=== PATIENT | female | born 1960 | race Caucasian/White ===

== ENCOUNTER 2021-04-13 16:15 | Inpatient (IN) | payer SELFPAY ==
[2021-04-13] MEDS ORDERED: Aspirin Chewable 81 MG TAB ONE (16:49)
[2021-04-13 17:44] LABS: #Eosinphils 0.1 thou/uL (0.0-0.7); #Lymphocytes 1.2 thou/uL (1.20-3.40); #Monocytes 0.3 thou/uL (0.11-0.59); #Neutrophils 4.3 thou/uL (1.40-6.50); %Basophils 0.2 % (0.0-1.0); %Eosinophils 1.5 % (0.0-10.0); %Lymphocytes 20.7 % (21.0-51.0); %Monocytes 5.6 % (0.0-10.0); Hemoglobin 15.9 g/dL (12.0-16.0); Mean Corpuscular HGB CONC 33.4 g/dL (32.0-36.0); Mean Corpuscular Hemoglobin 35.7 pg (27.0-31.0); Mean Platelet Volume 7.7 fL (7.4-10.4); Platelet Count 211 thou/uL (130-400); RBC Distribution Width 14.8 % (11.5-14.5); Red Blood Cell (RBC) Count 4.46 mill/uL (4.20-5.40); White Blood Cell (WBC) Count 5.9 thou/uL (4.8-10.8)
[2021-04-13 17:57] LABS: ALT (SGPT) 36 U/L (8-55); AST (SGOT) 33 U/L (5-34); Albumin 3.9 g/dL (3.4-4.8); Alkaline Phosphatase 83 U/L (40-110); Anion Gap 14 mmol/L (10-20); BUN (Urea Nitrogen) 6 mg/dL (9.8-20.1); Bilirubin, Total 0.3 mg/dL (0.2-1.2); Calc. Creatinine Clearance 0 mL/min (70-130); Calcium 8.9 mg/dL (7.8-10.44); Carbon Dioxide 30 mmol/L (23-31); Chloride 101 mmol/L (98-107); Glucose 97 mg/dL (80-115); Magnesium 1.8 mg/dL (1.6-2.6); Potassium 4.3 mmol/L (3.5-5.1); Protein, Total 6.9 g/dL (5.8-8.1); Sodium 141 mmol/L (136-145)
[2021-04-13 18:13] LABS: MDiff Complete? YES; Macrocytosis SLIGHT = 6-15 cells (100X) (0-5/hpf); Platelet Morphology Comment Appears Adequate
[2021-04-13 18:38] LABS: SARS-CoV-2 NAA Rapid Test Not Detected (NotDetected)
[2021-04-13 23:37] LABS: Troponin I Less than 0.010 ng/mL (< 0.028)
[2021-04-14] MEDS ORDERED: Lorazepam 1 MG TAB PO PRN
[2021-04-14] MEDS ORDERED: Nitroglycerin 0.4 MG TAB (25 Tab Bottle) SL PRN (00:25)
[2021-04-14] MEDS ORDERED: Acetaminophen 325 MG TAB PO PRN (00:25)
[2021-04-14] MEDS ORDERED: Ondansetron PF 4 MG/2 ML Vial IVP PRN (00:25)
[2021-04-14] MEDS ORDERED: Ondansetron ODT 4 MG TAB PO PRN (01:00)
[2021-04-14] MEDS ORDERED: Electrolyte Replacement Protocol 1 EACH FS PRN (01:00)
[2021-04-14] MEDS ORDERED: Lorazepam 2 MG/ML VIAL IM PRN (01:00)
[2021-04-14] MEDS ORDERED: Lorazepam 1 MG TAB ONE ×2 (01:19→07:59)
[2021-04-14] MEDS: Lorazepam 1 MG TAB PO SCH ×4 (01:36→18:31)
[2021-04-14] MEDS: Thiamine HCl 200 MG/2 ML VIAL SLOW IVP SCH (01:41)
[2021-04-14 01:48] LABS: Troponin I Less than 0.010 ng/mL (< 0.028)
[2021-04-14 05:54] LABS: #Eosinphils 0.1 thou/uL (0.0-0.7); #Lymphocytes 1.2 thou/uL (1.20-3.40); #Monocytes 0.4 thou/uL (0.11-0.59); #Neutrophils 3.8 thou/uL (1.40-6.50); %Basophils 0.3 % (0.0-1.0); %Eosinophils 1.1 % (0.0-10.0); %Lymphocytes 22.3 % (21.0-51.0); %Neutrophils 69.3 % (42.0-75.0); Hemoglobin 14.3 g/dL (12.0-16.0); Mean Corpuscular HGB CONC 33.4 g/dL (32.0-36.0); Mean Corpuscular Hemoglobin 35.7 pg (27.0-31.0); Mean Platelet Volume 7.4 fL (7.4-10.4); Platelet Count 211 thou/uL (130-400); RBC Distribution Width 14.5 % (11.5-14.5); Red Blood Cell (RBC) Count 4.01 mill/uL (4.20-5.40); White Blood Cell (WBC) Count 5.4 thou/uL (4.8-10.8)
[2021-04-14 06:22] LABS: Anion Gap 11 mmol/L (10-20); BUN (Urea Nitrogen) 8 mg/dL (9.8-20.1); Calc. Creatinine Clearance 0 mL/min (70-130); Calcium 9.2 mg/dL (7.8-10.44); Carbon Dioxide 33 mmol/L (23-31); Cardiac Risk 4.7 (Less than 4.5); Chloride 102 mmol/L (98-107); Cholesterol 236 mg/dl (< 200 Desired); Glucose 103 mg/dL (80-115); HDL Cholesterol 50 mg/dL (>60 Neg Risk); LDL Cholesterol, Calculated 157 mg/dL; Potassium 4.2 mmol/L (3.5-5.1); Sodium 142 mmol/L (136-145); Triglycerides 143 mg/dL (Less than 150)
[2021-04-14 06:26] LABS: Troponin I 0.018 ng/mL (< 0.028)
[2021-04-14] MEDS ORDERED: Magnesium 2 GM/50 ML 2 GM in Premix Bag 1 BAG IVPB SCH (07:00)
[2021-04-14] MEDS ORDERED: Folic Acid 1 MG TAB ONE ×2 (07:59→09:53)
[2021-04-14] MEDS ORDERED: Magnesium 2 GM/50 ML BAG (IN WATER) ONE (07:59)
[2021-04-14] MEDS ORDERED: methylPREDNISolone Sod Succ 40 MG VIAL ONE (09:52)
[2021-04-14] MEDS: Multivit, Therapeutic 1 TAB PO SCH (10:04)
[2021-04-14] MEDS: methylPREDNISolone Sod Succ 40 MG VIAL IVP SCH ×2 (10:04→18:30)
[2021-04-14] MEDS: Folic Acid 1 MG TAB PO SCH (10:04)
[2021-04-14 13:09] VITALS: BMI 32.8
[2021-04-14] MEDS ORDERED: Prevnar 13-Val Conj/PF 0.5 ML SYRINGE IM ONE (14:15)
[2021-04-14] MEDS ORDERED: FLU VACC QS2021-22(6MOS UP)/PF 60 MCG/0.5 ML SYRINGE IM ONE (14:15)
[2021-04-14] MEDS ORDERED: hydrALAZINE 20 MG/ML VIAL SLOW IVP PRN (19:03)
[2021-04-15] MEDS ORDERED: Lorazepam 1 MG TAB PO PRN (01:00)
[2021-04-15] MEDS: Lorazepam 1 MG TAB PO SCH ×5 (02:24→20:30)
[2021-04-15] MEDS: methylPREDNISolone Sod Succ 40 MG VIAL IVP SCH ×3 (02:28→17:44)
[2021-04-15] MEDS: Thiamine HCl 200 MG/2 ML VIAL SLOW IVP SCH (02:50)
[2021-04-15 05:32] LABS: #Lymphocytes 0.4 thou/uL (1.20-3.40); #Monocytes 0.1 thou/uL (0.11-0.59); #Neutrophils 4.4 thou/uL (1.40-6.50); %Eosinophils 0.1 % (0.0-10.0); %Lymphocytes 7.5 % (21.0-51.0); %Monocytes 1.3 % (0.0-10.0); %Neutrophils 91.1 % (42.0-75.0); Hemoglobin 15.7 g/dL (12.0-16.0); Mean Corpuscular HGB CONC 33.5 g/dL (32.0-36.0); Mean Corpuscular Hemoglobin 35.2 pg (27.0-31.0); Mean Platelet Volume 7.4 fL (7.4-10.4); Platelet Count 217 thou/uL (130-400); RBC Distribution Width 13.9 % (11.5-14.5); Red Blood Cell (RBC) Count 4.47 mill/uL (4.20-5.40); White Blood Cell (WBC) Count 4.9 thou/uL (4.8-10.8)
[2021-04-15 05:48] LABS: Anion Gap 14 mmol/L (10-20); BUN (Urea Nitrogen) 5 mg/dL (9.8-20.1); Calc. Creatinine Clearance 127 mL/min (70-130); Calcium 9.3 mg/dL (7.8-10.44); Carbon Dioxide 30 mmol/L (23-31); Chloride 99 mmol/L (98-107); Glucose 159 mg/dL (80-115); Potassium 3.9 mmol/L (3.5-5.1); Sodium 139 mmol/L (136-145)
[2021-04-15] MEDS: Levothyroxine Sodium 50 MCG TAB PO SCH (06:28)
[2021-04-15 08:17] LABS: Free T4 (Free Thyroxine) 0.89 ng/dL (0.70-1.48)
[2021-04-15] MEDS: Carvedilol 6.25 MG TAB PO SCH ×2 (09:29→17:44)
[2021-04-15] MEDS: Folic Acid 1 MG TAB PO SCH (09:29)
[2021-04-15] MEDS: Lisinopril 20 MG TAB PO SCH (09:29)
[2021-04-15] MEDS: Multivit, Therapeutic 1 TAB PO SCH (09:30)
[2021-04-15] MEDS: Amlodipine 10 MG TAB PO SCH (09:30)
[2021-04-16] MEDS ORDERED: Lorazepam 1 MG TAB PO PRN (01:00)
[2021-04-16] MEDS: Lorazepam 1 MG TAB PO SCH (01:08)
[2021-04-16] MEDS: Thiamine HCl 200 MG/2 ML VIAL SLOW IVP SCH (01:11)
[2021-04-16] MEDS: methylPREDNISolone Sod Succ 40 MG VIAL IVP SCH ×2 (01:11→08:21)
[2021-04-16] MEDS: Lorazepam 0.5 MG TAB PO SCH ×3 (01:22→12:54)
[2021-04-16 05:08] LABS: #Basophils 0.1 thou/uL (0.0-0.2); #Lymphocytes 0.2 thou/uL (1.20-3.40); #Monocytes 0.1 thou/uL (0.11-0.59); #Neutrophils 8.7 thou/uL (1.40-6.50); %Eosinophils 0.1 % (0.0-10.0); %Lymphocytes 2.5 % (21.0-51.0); %Neutrophils 95.4 % (42.0-75.0); Hemoglobin 16.1 g/dL (12.0-16.0); Mean Corpuscular Hemoglobin 35.2 pg (27.0-31.0); Mean Platelet Volume 7.7 fL (7.4-10.4); Platelet Count 239 thou/uL (130-400); RBC Distribution Width 14.1 % (11.5-14.5); Red Blood Cell (RBC) Count 4.58 mill/uL (4.20-5.40); White Blood Cell (WBC) Count 9.1 thou/uL (4.8-10.8)
[2021-04-16] MEDS: Levothyroxine Sodium 50 MCG TAB PO SCH (05:25)
[2021-04-16 05:33] LABS: Anion Gap 14 mmol/L (10-20); BUN (Urea Nitrogen) 12 mg/dL (9.8-20.1); Calc. Creatinine Clearance 105 mL/min (70-130); Calcium 9.4 mg/dL (7.8-10.44); Carbon Dioxide 30 mmol/L (23-31); Chloride 98 mmol/L (98-107); Glucose 154 mg/dL (80-115); Potassium 3.8 mmol/L (3.5-5.1); Sodium 138 mmol/L (136-145)
[2021-04-16] MEDS: Lisinopril 20 MG TAB PO SCH (08:20)
[2021-04-16] MEDS: Amlodipine 10 MG TAB PO SCH (08:20)
[2021-04-16] MEDS: Folic Acid 1 MG TAB PO SCH (08:20)
[2021-04-16] MEDS: Carvedilol 6.25 MG TAB PO SCH (08:20)
[2021-04-16] MEDS: Multivit, Therapeutic 1 TAB PO SCH (08:21)
[2021-04-16 12:14] VITALS: BP 169/81; TEMP 98.1
[2021-04-17] MEDS ORDERED: Levothyroxine Sodium 88 MCG TAB PO SCH (06:00)
[2021-04-17] MEDS ORDERED: Lorazepam 0.5 MG TAB PO PRN (06:00)
[2021-04-17] MEDS ORDERED: Thiamine 100 MG TAB PO SCH (09:00)
== END 2021-04-16 14:12 | disposition home or self-care (01) | DRG 189 ==
LOC: ERS 16:15 → ERHOLD 19:14 → 2SW 04-14 12:45 → OBSVTOIN 04-14 16:14
PROVIDERS: ADMIT Hospitalist; ATTEND Internal Medicine
PROC: 06HY33Z Insertion of Infusion Device into Lower Vein, Percutaneous Approach (ICD-10-PCS; principal; 2021-04-14)
DX: J96.21 Acute and chronic respiratory failure with hypoxia (principal); Z20.822 Contact with and (suspected) exposure to COVID-19; I10 Essential (primary) hypertension; E03.9 Hypothyroidism, unspecified; F17.210 Nicotine dependence, cigarettes, uncomplicated; F10.10 Alcohol abuse, uncomplicated; F41.9 Anxiety disorder, unspecified; F44.1 Dissociative fugue; R07.89 Other chest pain; Z71.6 Tobacco abuse counseling; Z99.81 Dependence on supplemental oxygen; Z28.21 Immunization not carried out because of patient refusal; Z85.41 Personal history of malignant neoplasm of cervix uteri; Z90.710 Acquired absence of both cervix and uterus; Z79.899 Other long term (current) drug therapy; Z79.890 Hormone replacement therapy
CPT/HCPCS: 0240U; 36415; 71045; 71275; 80048; 80053; 80061; 83735; 83880; 84439; 84443; 84481; 84484; 85025; 85379; 93306; 94640; 94760; J2920; J3411; J3475; J7620

== ENCOUNTER 2021-09-18 11:39 | Inpatient (IN) | payer OTHER, SELFPAY ==
[2021-09-18 13:16] LABS: #Lymphocytes 1.4 thou/uL (1.20-3.40); #Monocytes 0.3 thou/uL (0.11-0.59); %Basophils 0.7 % (0.0-1.0); %Eosinophils 0.5 % (0.0-10.0); %Lymphocytes 23.6 % (21.0-51.0); %Monocytes 5.5 % (0.0-10.0); %Neutrophils 69.6 % (42.0-75.0); Hemoglobin 15.8 g/dL (12.0-16.0); Mean Corpuscular HGB CONC 32.9 g/dL (32.0-36.0); Mean Corpuscular Hemoglobin 33.9 pg (27.0-31.0); Platelet Count 218 thou/uL (130-400); RBC Distribution Width 14.9 % (11.5-14.5); Red Blood Cell (RBC) Count 4.66 mill/uL (4.20-5.40); White Blood Cell (WBC) Count 5.8 thou/uL (4.8-10.8)
[2021-09-18] MEDS ORDERED: Iopamidol-370 76% 500 ML 1 ML ONE (13:35)
[2021-09-18 13:37] LABS: Bilirubin Negative (Negative); Blood, Urine Negative (Negative); Clarity Clear (Clear); Glucose, Urine (Dipstick) Normal (Negative); Ketone, Urine Negative (Negative); Leukocyte Negative Leu/uL (Negative); Nitrite Negative (Negative); Protein, Urine (Dipstick) Negative (Neg-Trace); Specific Gravity, Urine 1.004 (1.002-1.036); Urobilinogen Normal mg/dL (Less than 2); pH, Urine 5.5 (5.0-9.0)
[2021-09-18 13:40] LABS: ALT (SGPT) 13 U/L (8-55); AST (SGOT) 16 U/L (5-34); Albumin 3.9 g/dL (3.4-4.8); Alkaline Phosphatase 77 U/L (40-110); Anion Gap 13 mmol/L (10-20); BUN (Urea Nitrogen) 5 mg/dL (9.8-20.1); Bilirubin, Total 0.3 mg/dL (0.2-1.2); Calc. Creatinine Clearance 0 mL/min (70-130); Calcium 8.4 mg/dL (7.8-10.44); Carbon Dioxide 28 mmol/L (23-31); Chloride 101 mmol/L (98-107); Globulin 2.3 g/dL (2.4-3.5); Glucose 94 mg/dL (80-115); Potassium 3.9 mmol/L (3.5-5.1); Protein, Total 6.2 g/dL (5.8-8.1); Sodium 138 mmol/L (136-145)
[2021-09-18] MEDS ORDERED: methylPREDNISolone Sod Succ/PF 125 MG/2 ML VIAL ONE (14:53)
[2021-09-18] MEDS ORDERED: Calcium Carbonate 500 MG ChewTAB PO PRN (15:12)
[2021-09-18] MEDS ORDERED: Senokot S 8.6-50 MG TAB PO PRN (15:12)
[2021-09-18] MEDS ORDERED: Ondansetron PF 4 MG/2 ML Vial IVP PRN (15:12)
[2021-09-18] MEDS ORDERED: Acetaminophen 325 MG TAB PO PRN (15:12)
[2021-09-18] MEDS ORDERED: Ondansetron ODT 4 MG TAB PO PRN (15:12)
[2021-09-18] MEDS ORDERED: Electrolyte Replacement Protocol 1 EACH FS SCH (15:15)
[2021-09-18] MEDS ORDERED: hydrALAZINE 20 MG/ML VIAL SLOW IVP PRN (15:19)
[2021-09-18] MEDS ORDERED: Electrolyte Replacement Protocol FS PRN (15:30)
[2021-09-18] MEDS: cefTRIAXone\\ROCEPHIN 1 GM in Sodium Chloride 0.9% 100 ML IVPB SCH (18:26)
[2021-09-18 18:40] VITALS: BMI 31.7
[2021-09-18] MEDS ORDERED: diphenhydrAMINE 25 MG CAP PO SCH (20:15)
[2021-09-18] MEDS: Doxycycline 100 MG CAP PO SCH (20:36)
[2021-09-18] MEDS: methylPREDNISolone Sod Succ 40 MG VIAL IVP SCH (20:36)
[2021-09-18] MEDS: Nicotine 14 MG PATCH TOP SCH (20:36)
[2021-09-19 04:38] LABS: #Lymphocytes 0.2 thou/uL (1.20-3.40); #Neutrophils 3.7 thou/uL (1.40-6.50); %Eosinophils 0.1 % (0.0-10.0); %Lymphocytes 5.9 % (21.0-51.0); %Monocytes 0.8 % (0.0-10.0); %Neutrophils 93.3 % (42.0-75.0); Hemoglobin 15.7 g/dL (12.0-16.0); Mean Corpuscular HGB CONC 33.3 g/dL (32.0-36.0); Mean Corpuscular Hemoglobin 34.2 pg (27.0-31.0); Mean Platelet Volume 7.5 fL (7.4-10.4); Platelet Count 216 thou/uL (130-400); RBC Distribution Width 15.2 % (11.5-14.5); Red Blood Cell (RBC) Count 4.61 mill/uL (4.20-5.40)
[2021-09-19 04:57] LABS: Anion Gap 12 mmol/L (10-20); BUN (Urea Nitrogen) 5 mg/dL (9.8-20.1); Calc. Creatinine Clearance 114 mL/min (70-130); Calcium 8.9 mg/dL (7.8-10.44); Carbon Dioxide 30 mmol/L (23-31); Chloride 99 mmol/L (98-107); Glucose 236 mg/dL (80-115); Sodium 137 mmol/L (136-145)
[2021-09-19] MEDS ORDERED: Magnesium 2 GM/50 ML(in water) 2 GM in Premix Bag 1 BAG IVPB SCH (05:15)
[2021-09-19] MEDS: methylPREDNISolone Sod Succ 40 MG VIAL IVP SCH ×3 (05:33→22:07)
[2021-09-19] MEDS: Levothyroxine Sodium 25 MCG TAB PO SCH (05:33)
[2021-09-19] MEDS ORDERED: ALPRAZolam 0.25 MG TAB PO SCH (09:45)
[2021-09-19] MEDS: Lisinopril 20 MG TAB PO SCH (09:53)
[2021-09-19] MEDS: Cyanocobalamin (Vitamin B-12) 1,000 MCG TAB PO SCH (09:54)
[2021-09-19] MEDS: Doxycycline 100 MG CAP PO SCH ×2 (09:54→22:06)
[2021-09-19] MEDS: Enoxaparin Sodium 40 MG/0.4 ML SYRINGE SC SCH (09:54)
[2021-09-19] MEDS: Amlodipine 10 MG TAB PO SCH (09:54)
[2021-09-19] MEDS: Atenolol 25 MG TAB PO SCH (09:54)
[2021-09-19] MEDS ORDERED: Furosemide 40 MG TAB PO SCH (10:00)
[2021-09-19 16:11] LABS: SARS-CoV-2 PCR by NAA Not Detected (NotDetected)
[2021-09-19] MEDS: cefTRIAXone\\ROCEPHIN 1 GM in Sodium Chloride 0.9% 100 ML IVPB SCH (17:57)
[2021-09-19] MEDS: ALPRAZolam 0.25 MG TAB PO PRN (22:06)
[2021-09-19] MEDS: Nicotine 14 MG PATCH TOP SCH (22:07)
[2021-09-20 04:58] LABS: Magnesium 2.1 mg/dL (1.6-2.6)
[2021-09-20] MEDS: Levothyroxine Sodium 25 MCG TAB PO SCH (05:55)
[2021-09-20] MEDS: methylPREDNISolone Sod Succ 40 MG VIAL IVP SCH (05:55)
[2021-09-20] MEDS: Lisinopril 20 MG TAB PO SCH (08:39)
[2021-09-20] MEDS: Enoxaparin Sodium 40 MG/0.4 ML SYRINGE SC SCH (08:39)
[2021-09-20] MEDS: Doxycycline 100 MG CAP PO SCH ×2 (08:39→22:03)
[2021-09-20] MEDS: Cyanocobalamin (Vitamin B-12) 1,000 MCG TAB PO SCH (08:39)
[2021-09-20] MEDS: Amlodipine 10 MG TAB PO SCH (08:39)
[2021-09-20] MEDS: Atenolol 25 MG TAB PO SCH ×2 (08:40→22:03)
[2021-09-20] MEDS: Furosemide 40 MG TAB PO SCH (08:40)
[2021-09-20] MEDS ORDERED: Atenolol 25 MG TAB PO SCH (09:11)
[2021-09-20] MEDS: guaiFENesin ER 600 MG TAB PO SCH (22:03)
[2021-09-20] MEDS: Nicotine 14 MG PATCH TOP SCH (22:03)
[2021-09-20] MEDS: ALPRAZolam 0.25 MG TAB PO PRN (22:10)
[2021-09-21] MEDS: Levothyroxine Sodium 25 MCG TAB PO SCH (05:12)
[2021-09-21] MEDS ORDERED: predniSONE 20 MG TAB PO SCH (08:00)
[2021-09-21 08:11] VITALS: BP 155/72; TEMP 98.1
[2021-09-21] MEDS: Furosemide 40 MG TAB PO SCH (09:01)
[2021-09-21] MEDS: Cyanocobalamin (Vitamin B-12) 1,000 MCG TAB PO SCH (09:01)
[2021-09-21] MEDS: Atenolol 25 MG TAB PO SCH (09:01)
[2021-09-21] MEDS: Amlodipine 10 MG TAB PO SCH (09:01)
[2021-09-21] MEDS: Doxycycline 100 MG CAP PO SCH (09:02)
[2021-09-21] MEDS: Lisinopril 20 MG TAB PO SCH (09:02)
[2021-09-21] MEDS: guaiFENesin ER 600 MG TAB PO SCH (09:02)
[2021-09-21] MEDS: Enoxaparin Sodium 40 MG/0.4 ML SYRINGE SC SCH (09:04)
== END 2021-09-21 10:40 | disposition home or self-care (01) | DRG 291 ==
LOC: ERS 11:39 → 2NO 14:45
PROVIDERS: ADMIT Family Medicine; ATTEND Family Medicine
DX: I13.0 Hypertensive heart and chronic kidney disease with heart failure and stage 1 through stage 4 chronic kidney disease, or unspecified chronic kidney disease (principal); J96.21 Acute and chronic respiratory failure with hypoxia; I50.33 Acute on chronic diastolic (congestive) heart failure; J44.1 Chronic obstructive pulmonary disease with (acute) exacerbation; Z20.822 Contact with and (suspected) exposure to COVID-19; F17.210 Nicotine dependence, cigarettes, uncomplicated; E03.9 Hypothyroidism, unspecified; N18.2 Chronic kidney disease, stage 2 (mild); F41.9 Anxiety disorder, unspecified; I08.1 Rheumatic disorders of both mitral and tricuspid valves; Z79.899 Other long term (current) drug therapy; Z99.81 Dependence on supplemental oxygen; Z79.890 Hormone replacement therapy; Z79.52 Long term (current) use of systemic steroids; Z90.710 Acquired absence of both cervix and uterus; Z85.41 Personal history of malignant neoplasm of cervix uteri; Z80.3 Family history of malignant neoplasm of breast; Z82.5 Family history of asthma and other chronic lower respiratory diseases; Z71.6 Tobacco abuse counseling; Z91.14 Patient's other noncompliance with medication regimen; Z71.41 Alcohol abuse counseling and surveillance of alcoholic
CPT/HCPCS: 36415; 71045; 71275; 80048; 80053; 81003; 83605; 83735; 83880; 84484; 85025; 93005; 94640; 94760; 96374; J0360; J0696; J2920; J2930; J3475; J3490; J7512; J7620; Q9967; U0003; U0005

== ENCOUNTER 2021-10-23 18:36 | Emergency (ER) | payer OTHER, SELFPAY ==
[2021-10-23 19:10] LABS: #Basophils 0.1 thou/uL (0.0-0.2); #Lymphocytes 1.4 thou/uL (1.20-3.40); #Monocytes 0.4 thou/uL (0.11-0.59); #Neutrophils 2.7 thou/uL (1.40-6.50); %Basophils 1.4 % (0.0-1.0); %Eosinophils 0.6 % (0.0-10.0); %Lymphocytes 30.5 % (21.0-51.0); %Monocytes 8.7 % (0.0-10.0); %Neutrophils 58.9 % (42.0-75.0); Hemoglobin 15.2 g/dL (12.0-16.0); Mean Corpuscular Hemoglobin 34.8 pg (27.0-31.0); Platelet Count 273 thou/uL (130-400); RBC Distribution Width 14.7 % (11.5-14.5); Red Blood Cell (RBC) Count 4.37 mill/uL (4.20-5.40); White Blood Cell (WBC) Count 4.6 thou/uL (4.8-10.8)
[2021-10-23 19:22] LABS: MDiff Complete? YES; Macrocytosis SLIGHT = 6-15 cells (100X) (0-5/hpf); Platelet Morphology Comment Appears Adequate; Polychromasia SLIGHT = 2-3 cells (100X) (0-2/hpf)
[2021-10-23 19:29] LABS: ALT (SGPT) 16 U/L (8-55); AST (SGOT) 18 U/L (5-34); Albumin 3.6 g/dL (3.4-4.8); Alkaline Phosphatase 78 U/L (40-110); Anion Gap 15 mmol/L (10-20); BUN (Urea Nitrogen) 4 mg/dL (9.8-20.1); Bilirubin, Total 0.5 mg/dL (0.2-1.2); Calc. Creatinine Clearance 0 mL/min (70-130); Calcium 8.5 mg/dL (7.8-10.44); Carbon Dioxide 29 mmol/L (23-31); Chloride 98 mmol/L (98-107); Globulin 2.9 g/dL (2.4-3.5); Glucose 122 mg/dL (80-115); Potassium 3.7 mmol/L (3.5-5.1); Protein, Total 6.5 g/dL (5.8-8.1); Sodium 138 mmol/L (136-145)
[2021-10-23] MEDS ORDERED: Albuterol Sulfate 2.5 mg/0.5 ml Neb ONE (20:25)
[2021-10-23] MEDS ORDERED: Albuterol Sulfate 1.25 MG/3 ML NEB ONE (20:26)
== END 2021-10-24 01:25 | disposition home or self-care (01) ==
LOC: ERS 18:36
DX: J44.1 Chronic obstructive pulmonary disease with (acute) exacerbation (principal); R00.0 Tachycardia, unspecified; I10 Essential (primary) hypertension; I34.1 Nonrheumatic mitral (valve) prolapse; F17.210 Nicotine dependence, cigarettes, uncomplicated; Z79.899 Other long term (current) drug therapy
CPT/HCPCS: 36415; 71045; 80053; 83880; 84484; 85025; 93005; J7611; J7620

== ENCOUNTER 2022-07-05 15:28 | Emergency (ER) | payer SELFPAY ==
[2022-07-05 16:59] LABS: #Eosinphils 0.1 thou/uL (0.0-0.7); #Lymphocytes 0.8 thou/uL (1.20-3.40); #Monocytes 0.4 thou/uL (0.11-0.59); #Neutrophils 5.5 thou/uL (1.40-6.50); %Basophils 0.6 % (0.0-1.0); %Eosinophils 1.3 % (0.0-10.0); %Lymphocytes 11.4 % (21.0-51.0); %Monocytes 5.2 % (0.0-10.0); %Neutrophils 81.5 % (42.0-75.0); Hemoglobin 14.1 g/dL (12.0-16.0); Mean Corpuscular HGB CONC 34.8 g/dL (32.0-36.0); Mean Platelet Volume 7.1 fL (7.4-10.4); Platelet Count 335 10x3/uL (130-400); RBC Distribution Width 12.7 % (11.5-14.5); Red Blood Cell (RBC) Count 4.02 mill/uL (4.20-5.40); White Blood Cell (WBC) Count 6.8 10x3/uL (4.8-10.8)
[2022-07-05 17:18] LABS: ALT (SGPT) 11 U/L (8-55); AST (SGOT) 12 U/L (5-34); Albumin 3.9 g/dL (3.4-4.8); Alkaline Phosphatase 118 U/L (40-110); Anion Gap 14 mmol/L (10-20); BUN (Urea Nitrogen) 5 mg/dL (9.8-20.1); Bilirubin, Total 0.4 mg/dL (0.2-1.2); Calc. Creatinine Clearance 0 mL/min (70-130); Calcium 9.5 mg/dL (7.8-10.44); Carbon Dioxide 29 mmol/L (23-31); Chloride 88 mmol/L (98-107); Estimated GFR 100; Globulin 3.3 g/dL (2.4-3.5); Glucose 127 mg/dL (80-115); Potassium 4.3 mmol/L (3.5-5.1); Protein, Total 7.2 g/dL (5.8-8.1); Sodium 127 mmol/L (136-145)
[2022-07-05] MEDS ORDERED: Acetaminophen/Codeine 30-300mg Tablet ONE (17:47)
[2022-07-05 19:25] LABS: SARS-CoV-2 NAA Rapid Test Not Detected (NotDetected)
== END 2022-07-05 19:50 | disposition home or self-care (01) ==
LOC: ERS 15:28
DX: B34.9 Viral infection, unspecified (principal); E87.1 Hypo-osmolality and hyponatremia; Z20.822 Contact with and (suspected) exposure to COVID-19; I10 Essential (primary) hypertension; J44.9 Chronic obstructive pulmonary disease, unspecified; F17.210 Nicotine dependence, cigarettes, uncomplicated; Z79.899 Other long term (current) drug therapy
CPT/HCPCS: 36415; 71045; 80053; 84484; 85025; 93005; 94760

== ENCOUNTER 2023-02-28 20:41 | Inpatient (IN) | payer SELFPAY ==
[~2023-02-28 20:41] MED LIST: Iopamidol-370 76% 500 ML MDV (1 ML CHARGE) ONE
[2023-02-28 21:23] LABS: #Eosinphils 0.1 thou/uL (0.0-0.7); #Monocytes 1.3 thou/uL (0.11-0.59); #Neutrophils 13.4 thou/uL (1.40-6.50); %Basophils 0.2 % (0.0-1.0); %Eosinophils 0.3 % (0.0-10.0); %Lymphocytes 10.6 % (21.0-51.0); %Monocytes 7.9 % (0.0-10.0); %Neutrophils 80.3 % (42.0-75.0); Hematocrit 28.5 % (36.0-47.0); Hemoglobin 9.5 g/dL (12.0-16.0); Mean Corpuscular HGB CONC 33.3 g/dL (32.0-36.0); Mean Corpuscular Volume 86.9 fl (78.0-98.0); Mean Platelet Volume 8.9 fL (7.4-10.4); Platelet Count 1009 10x3/uL (130-400); RBC Distribution Width 14.2 % (11.5-14.5); Red Blood Cell (RBC) Count 3.28 mill/uL (4.20-5.40); White Blood Cell (WBC) Count 16.7 10x3/uL (4.8-10.8)
[2023-02-28] MEDS ORDERED: Ondansetron PF 4 MG/2 ML Vial ONE (21:24)
[2023-02-28] MEDS ORDERED: Morphine 4 MG/ML VIAL ONE (21:24)
[2023-02-28 21:43] LABS: PTT 38.7 sec (22.9-36.1); Prothrombin Time 13.5 sec (12.0-14.7)
[2023-02-28 21:44] LABS: ALT (SGPT) 16 U/L (8-55); AST (SGOT) 25 U/L (5-34); Albumin 3.3 g/dL (3.4-4.8); Alkaline Phosphatase 531 U/L (40-110); Anion Gap 17 mmol/L (10-20); BUN (Urea Nitrogen) 7 mg/dL (9.8-20.1); Bilirubin, Total 0.2 mg/dL (0.2-1.2); Calc. Creatinine Clearance 0 mL/min (70-130); Calcium 9.3 mg/dL (7.8-10.44); Carbon Dioxide 28 mmol/L (23-31); Chloride 85 mmol/L (98-107); Estimated GFR 102; Globulin 3.5 g/dL (2.4-3.5); Glucose 107 mg/dL (80-115); Potassium 4.1 mmol/L (3.5-5.1); Protein, Total 6.8 g/dL (5.8-8.1); Sodium 126 mmol/L (136-145)
[2023-02-28 22:12] LABS: Bacteria/HPF None Seen HPF (None Seen); Bilirubin Negative (Negative); Blood, Urine Negative (Negative); CAUTI Indications for Culture Dysuria,urgency,freq; Clarity Clear (Clear); Glucose, Urine (Dipstick) Normal (Negative); Ketone, Urine Negative (Negative); Leukocyte Negative Leu/uL (Negative); Nitrite Negative (Negative); Protein, Urine (Dipstick) Negative (Neg-Trace); RBC/HPF None Seen HPF (0-3); Squamous Epithelial 0-3 HPF (0-3); Urobilinogen Normal mg/dL (Less than 2); WBC/HPF 0-3 HPF (0-3); pH, Urine 6.5 (5.0-9.0)
[2023-02-28] MEDS ORDERED: Piperacillin/Tazobactam 3.375 GM VIAL ONE (22:12)
[2023-02-28 22:16] LABS: Urine Culture Reflex No No
[2023-02-28 22:45] LABS: SARS-CoV-2 NAA Rapid Test Not Detected (NotDetected)
[2023-02-28] MEDS ORDERED: HYDROmorphone 0.5 MG/0.5 ML SYRINGE ONE (23:58)
[2023-03-01] MEDS ORDERED: Acetaminophen 325 MG TAB PO PRN (01:45)
[2023-03-01] MEDS ORDERED: Ondansetron PF 4 MG/2 ML Vial IVP PRN (01:45)
[2023-03-01] MEDS ORDERED: Ondansetron ODT 4 MG TAB SL PRN (01:45)
[2023-03-01 02:02] VITALS: BMI 20.8
[2023-03-01] MEDS ORDERED: Dextrose 5%-Lactated Ringers 1,000 ML IV SCH (03:00)
[2023-03-01] MEDS: Nicotine 14 MG PATCH TD PRN (03:24)
[2023-03-01] MEDS: Morphine 2 MG/ML VIAL SLOW IVP PRN ×4 (03:24→18:49)
[2023-03-01 05:49] LABS: #Monocytes 1.1 thou/uL (0.11-0.59); #Neutrophils 7.9 thou/uL (1.40-6.50); %Basophils 0.2 % (0.0-1.0); %Eosinophils 0.2 % (0.0-10.0); %Lymphocytes 14.9 % (21.0-51.0); %Monocytes 10.5 % (0.0-10.0); %Neutrophils 73.6 % (42.0-75.0); Hematocrit 23.2 % (36.0-47.0); Hemoglobin 7.7 g/dL (12.0-16.0); Mean Corpuscular HGB CONC 33.2 g/dL (32.0-36.0); Mean Corpuscular Hemoglobin 29.3 pg (27.0-31.0); Mean Corpuscular Volume 88.2 fl (78.0-98.0); Mean Platelet Volume 9.1 fL (7.4-10.4); RBC Distribution Width 14.4 % (11.5-14.5); Red Blood Cell (RBC) Count 2.63 mill/uL (4.20-5.40); White Blood Cell (WBC) Count 10.7 10x3/uL (4.8-10.8)
[2023-03-01 05:52] LABS: Platelet Count 576 10x3/uL (130-400)
[2023-03-01 06:01] LABS: ALT (SGPT) 14 U/L (8-55); AST (SGOT) 21 U/L (5-34); Albumin 2.5 g/dL (3.4-4.8); Alkaline Phosphatase 393 U/L (40-110); Anion Gap 13 mmol/L (10-20); BUN (Urea Nitrogen) 4 mg/dL (9.8-20.1); Bilirubin, Total 0.2 mg/dL (0.2-1.2); Calc. Creatinine Clearance 106 mL/min (70-130); Calcium 8.5 mg/dL (7.8-10.44); Carbon Dioxide 28 mmol/L (23-31); Chloride 91 mmol/L (98-107); Estimated GFR 107; Globulin 2.6 g/dL (2.4-3.5); Glucose 93 mg/dL (80-115); Protein, Total 5.1 g/dL (5.8-8.1); Sodium 128 mmol/L (136-145)
[2023-03-01] MEDS: Mometasone 200 MCG HFA INHALER (RT USE) INH SCH ×2 (06:47→18:52)
[2023-03-01] MEDS: Atenolol 25 MG TAB PO SCH (08:14)
[2023-03-01] MEDS: Amlodipine 10 MG TAB PO SCH (08:14)
[2023-03-01] MEDS: Famotidine 20 MG TAB PO SCH ×2 (08:15→21:29)
[2023-03-01] MEDS: Lisinopril 20 MG TAB PO SCH (08:15)
[2023-03-01 09:01] LABS: Iron 23 ug/dL (50-170); Iron Binding Capacity, Total 100 mcg/dL (265-497)
[2023-03-01 13:13] LABS: Hematocrit 22.2 % (36.0-47.0); Hemoglobin 7.3 g/dL (12.0-16.0)
[2023-03-01] MEDS: Iron, Sodium Ferric Gluconate 250 MG in Sodium Chloride 0.9% 250 ML 250 ML IVPB SCH (14:04)
[2023-03-01 17:24] LABS: Iron Binding Capacity, Total 109 mcg/dL (265-497)
[2023-03-01 17:43] LABS: Iron 510 ug/dL (50-170)
[2023-03-01] MEDS ORDERED: ALPRAZolam 0.25 MG TAB PO SCH (21:00)
[2023-03-01] MEDS ORDERED: Morphine 4 MG/ML VIAL SLOW IVP SCH (22:30)
[2023-03-01] MEDS ORDERED: GoLYTELY 4,000 ml Bottle PO SCH (22:30)
[2023-03-02 06:10] LABS: Hematocrit 24.7 % (36.0-47.0); Hemoglobin 7.9 g/dL (12.0-16.0); Mean Corpuscular Hemoglobin 28.7 pg (27.0-31.0); Mean Corpuscular Volume 89.8 fl (78.0-98.0); Mean Platelet Volume 8.8 fL (7.4-10.4); Platelet Count 700 10x3/uL (130-400); RBC Distribution Width 14.6 % (11.5-14.5); Red Blood Cell (RBC) Count 2.75 mill/uL (4.20-5.40); White Blood Cell (WBC) Count 15.1 10x3/uL (4.8-10.8)
[2023-03-02] MEDS: Morphine 2 MG/ML VIAL SLOW IVP PRN ×2 (06:17→18:51)
[2023-03-02] MEDS: Nicotine 14 MG PATCH TD PRN (06:18)
[2023-03-02 06:39] LABS: ALT (SGPT) 13 U/L (8-55); AST (SGOT) 24 U/L (5-34); Albumin 2.9 g/dL (3.4-4.8); Alkaline Phosphatase 446 U/L (40-110); Anion Gap 17 mmol/L (10-20); BUN (Urea Nitrogen) 4 mg/dL (9.8-20.1); Bilirubin, Total 0.3 mg/dL (0.2-1.2); Calc. Creatinine Clearance 100 mL/min (70-130); Calcium 8.5 mg/dL (7.8-10.44); Carbon Dioxide 28 mmol/L (23-31); Chloride 86 mmol/L (98-107); Estimated GFR 105; Globulin 2.9 g/dL (2.4-3.5); Glucose 88 mg/dL (80-115); Potassium 3.9 mmol/L (3.5-5.1); Protein, Total 5.8 g/dL (5.8-8.1); Sodium 127 mmol/L (136-145)
[2023-03-02] MEDS: Mometasone 200 MCG HFA INHALER (RT USE) INH SCH ×2 (06:51→18:46)
[2023-03-02] MEDS: Atenolol 25 MG TAB PO SCH (08:44)
[2023-03-02] MEDS: Famotidine 20 MG TAB PO SCH ×2 (08:44→20:57)
[2023-03-02] MEDS ORDERED: GoLYTELY 4,000 ml Bottle PO SCH (10:30)
[2023-03-02] MEDS ORDERED: Promethazine HCl 25 MG/ML VIAL IM PRN (12:58)
[2023-03-02] MEDS ORDERED: Ondansetron HCl/PF 4 MG/2 ML Vial IVP PRN (12:58)
[2023-03-02] MEDS ORDERED: Lidocaine 1% PF 5 ML VIAL ONE (13:19)
[2023-03-02] MEDS ORDERED: PROPOFOL 200 MG/20 ML VIAL ONE (13:19)
[2023-03-02] MEDS: Iron, Sodium Ferric Gluconate 250 MG in Sodium Chloride 0.9% 250 ML 250 ML IVPB SCH (15:56)
[2023-03-02] MEDS ORDERED: Morphine 2 MG/ML VIAL SLOW IVP SCH (20:45)
[2023-03-03] MEDS: Morphine 2 MG/ML VIAL SLOW IVP PRN ×4 (00:02→22:35)
[2023-03-03 05:22] LABS: Hemoglobin 6.6 g/dL (12.0-16.0); Mean Corpuscular Hemoglobin 29.5 pg (27.0-31.0); Mean Corpuscular Volume 89.3 fl (78.0-98.0); Mean Platelet Volume 8.8 fL (7.4-10.4); RBC Distribution Width 14.6 % (11.5-14.5); Red Blood Cell (RBC) Count 2.24 mill/uL (4.20-5.40); White Blood Cell (WBC) Count 9.3 10x3/uL (4.8-10.8)
[2023-03-03 05:40] LABS: Platelet Count 483 10x3/uL (130-400)
[2023-03-03 05:46] LABS: Anion Gap 10 mmol/L (10-20); BUN (Urea Nitrogen) Less than 4 mg/dL (9.8-20.1); Calc. Creatinine Clearance 122 mL/min (70-130); Carbon Dioxide 32 mmol/L (23-31); Chloride 91 mmol/L (98-107); Estimated GFR 110; Glucose 90 mg/dL (80-115); Potassium 3.3 mmol/L (3.5-5.1); Sodium 130 mmol/L (136-145)
[2023-03-03] MEDS ORDERED: Lidocaine 1% w/Epinephrine 1:100K 20 ML VIAL ONE (07:47)
[2023-03-03] MEDS ORDERED: fentaNYL 50 mcg/mL 1 mL Vial ONE (07:47)
[2023-03-03] MEDS ORDERED: Sodium Bicarbonate 2.5 MEQ/5 ML VIAL ONE (07:47)
[2023-03-03] MEDS: Mometasone 200 MCG HFA INHALER (RT USE) INH SCH ×2 (07:57→18:52)
[2023-03-03] MEDS ORDERED: Ondansetron PF 4 MG/2 ML Vial ONE (08:41)
[2023-03-03] MEDS ORDERED: Potassium Chloride 20 MEQ TAB PO SCH (09:00)
[2023-03-03] MEDS: Famotidine 20 MG TAB PO SCH ×2 (11:36→21:01)
[2023-03-03] MEDS: Atenolol 25 MG TAB PO SCH (11:37)
[2023-03-03] MEDS ORDERED: Iron, Sodium Ferric Gluconate 250 MG in Sodium Chloride 0.9% 250 ML 250 ML IVPB SCH (17:15)
[2023-03-03] MEDS: Iron, Sodium Ferric Gluconate 250 MG in Sodium Chloride 0.9% 250 ML 250 ML IVPB SCH (17:58)
[2023-03-04] MEDS: Morphine 4 MG/ML VIAL SLOW IVP PRN ×4 (02:41→19:13)
[2023-03-04 05:34] LABS: Hematocrit 26.2 % (36.0-47.0); Hemoglobin 8.5 g/dL (12.0-16.0); Mean Corpuscular HGB CONC 32.4 g/dL (32.0-36.0); Mean Corpuscular Volume 89.4 fl (78.0-98.0); Mean Platelet Volume 9.1 fL (7.4-10.4); Platelet Count 486 10x3/uL (130-400); RBC Distribution Width 14.9 % (11.5-14.5); Red Blood Cell (RBC) Count 2.93 mill/uL (4.20-5.40); White Blood Cell (WBC) Count 10.2 10x3/uL (4.8-10.8)
[2023-03-04 06:07] LABS: Anion Gap 13 mmol/L (10-20); BUN (Urea Nitrogen) 4 mg/dL (9.8-20.1); Calc. Creatinine Clearance 100 mL/min (70-130); Calcium 8.4 mg/dL (7.8-10.44); Carbon Dioxide 30 mmol/L (23-31); Chloride 91 mmol/L (98-107); Estimated GFR 105; Glucose 94 mg/dL (80-115); Magnesium 1.8 mg/dL (1.6-2.6); Potassium 4.1 mmol/L (3.5-5.1); Sodium 130 mmol/L (136-145)
[2023-03-04] MEDS: Mometasone 200 MCG HFA INHALER (RT USE) INH SCH ×2 (07:03→18:56)
[2023-03-04] MEDS ORDERED: HYDROcodone/Acetaminophen 10/325 mg Tablet PO PRN (08:30)
[2023-03-04] MEDS: Atenolol 25 MG TAB PO SCH (09:33)
[2023-03-04] MEDS: Famotidine 20 MG TAB PO SCH ×2 (09:33→21:00)
[2023-03-04] MEDS: Acetaminophen 325 MG TAB PO PRN ×2 (11:18→21:00)
[2023-03-04] MEDS: Acetaminophen/Codeine 30-300mg Tablet PO PRN (16:49)
[2023-03-04] MEDS: Ondansetron PF 4 MG/2 ML Vial IVP PRN (19:13)
[2023-03-05] MEDS: Acetaminophen/Codeine 30-300mg Tablet PO PRN ×3 (00:25→16:02)
[2023-03-05] MEDS: Morphine 4 MG/ML VIAL SLOW IVP PRN ×4 (02:32→20:47)
[2023-03-05] MEDS: Ondansetron PF 4 MG/2 ML Vial IVP PRN ×2 (02:47→20:47)
[2023-03-05 05:24] LABS: Hematocrit 26.2 % (36.0-47.0); Hemoglobin 8.4 g/dL (12.0-16.0); Mean Corpuscular HGB CONC 32.1 g/dL (32.0-36.0); Mean Corpuscular Hemoglobin 29.3 pg (27.0-31.0); Mean Corpuscular Volume 91.3 fl (78.0-98.0); Mean Platelet Volume 8.9 fL (7.4-10.4); Platelet Count 394 10x3/uL (130-400); RBC Distribution Width 14.8 % (11.5-14.5); Red Blood Cell (RBC) Count 2.87 mill/uL (4.20-5.40); White Blood Cell (WBC) Count 8.9 10x3/uL (4.8-10.8)
[2023-03-05 05:48] LABS: Anion Gap 13 mmol/L (10-20); BUN (Urea Nitrogen) 4 mg/dL (9.8-20.1); Calc. Creatinine Clearance 96 mL/min (70-130); Calcium 8.7 mg/dL (7.8-10.44); Carbon Dioxide 32 mmol/L (23-31); Chloride 92 mmol/L (98-107); Estimated GFR 104; Glucose 124 mg/dL (80-115); Potassium 4.1 mmol/L (3.5-5.1); Sodium 133 mmol/L (136-145)
[2023-03-05] MEDS: Mometasone 200 MCG HFA INHALER (RT USE) INH SCH ×2 (07:28→18:31)
[2023-03-05] MEDS: Lisinopril 20 MG TAB PO SCH (09:48)
[2023-03-05] MEDS: Famotidine 20 MG TAB PO SCH ×2 (09:48→20:01)
[2023-03-05] MEDS: Atenolol 25 MG TAB PO SCH (09:48)
[2023-03-05] MEDS: Amlodipine 10 MG TAB PO SCH (09:48)
[2023-03-05] MEDS ORDERED: Docusate 100 MG CAP PO PRN (11:11)
[2023-03-05] MEDS ORDERED: Polyethylene Glycol 3350 17 GM Packet PO PRN (11:11)
[2023-03-06] MEDS: Acetaminophen/Codeine 30-300mg Tablet PO PRN ×2 (02:02→16:29)
[2023-03-06] MEDS: Morphine 4 MG/ML VIAL SLOW IVP PRN ×2 (03:30→17:37)
[2023-03-06] MEDS ORDERED: CEFAZOLIN 2 GM in Sodium Chloride 0.9% 100 ML IVPB SCH (06:00)
[2023-03-06] MEDS: Atenolol 25 MG TAB PO SCH (06:09)
[2023-03-06] MEDS ORDERED: EPINEPHrine 1 MG/ML AMP ONE (06:37)
[2023-03-06] MEDS ORDERED: Bupivacaine 0.25% HCL 30 ML VIAL ONE (06:37)
[2023-03-06] MEDS: Mometasone 200 MCG HFA INHALER (RT USE) INH SCH ×2 (06:46→18:56)
[2023-03-06] MEDS ORDERED: fentaNYL 50 mcg/mL 1 mL Vial ONE ×3 (06:59→09:18)
[2023-03-06] MEDS ORDERED: CEFAZOLIN 2 GM VIAL ONE (07:14)
[2023-03-06] MEDS ORDERED: Sodium Chloride 0.9% 100 ML ONE (07:14)
[2023-03-06] MEDS ORDERED: Promethazine HCl 25 MG/ML VIAL IM PRN (08:57)
[2023-03-06] MEDS ORDERED: Ondansetron HCl/PF 4 MG/2 ML Vial IVP PRN (08:57)
[2023-03-06 09:57] VITALS: TEMP 98.2
[2023-03-06] MEDS: Lisinopril 20 MG TAB PO SCH (10:47)
[2023-03-06] MEDS: Amlodipine 10 MG TAB PO SCH (10:47)
[2023-03-06 10:48] VITALS: BP 123/72
[2023-03-06] MEDS: Famotidine 20 MG TAB PO SCH (10:48)
== END 2023-03-06 19:30 | disposition home or self-care (01) | DRG 357 ==
LOC: ERS 20:41 → SURG B 03-01 00:15 → OBSVTOIN 03-01 00:15
PROVIDERS: ADMIT Student in an Organized Health Care Education/Training Program; ATTEND Internal Medicine
PROC: 0DBP8ZX Excision of Rectum, Via Natural or Artificial Opening Endoscopic, Diagnostic (ICD-10-PCS; 2023-03-02)
PROC: 0FB23ZX Excision of Left Lobe Liver, Percutaneous Approach, Diagnostic (ICD-10-PCS; 2023-03-03)
PROC: 30233N1 Transfusion of Nonautologous Red Blood Cells into Peripheral Vein, Percutaneous Approach (ICD-10-PCS; 2023-03-03)
PROC: 0JH60WZ Insertion of Totally Implantable Vascular Access Device into Chest Subcutaneous Tissue and Fascia, Open Approach (ICD-10-PCS; principal; 2023-03-06)
PROC: 02HV33Z Insertion of Infusion Device into Superior Vena Cava, Percutaneous Approach (ICD-10-PCS; 2023-03-06)
PROC: 3E04305 Introduction of Other Antineoplastic into Central Vein, Percutaneous Approach (ICD-10-PCS; 2023-03-06)
PROC: B5181ZA Fluoroscopy of Superior Vena Cava using Low Osmolar Contrast, Guidance (ICD-10-PCS; 2023-03-06)
DX: C20 Malignant neoplasm of rectum (principal); C78.7 Secondary malignant neoplasm of liver and intrahepatic bile duct; E87.1 Hypo-osmolality and hyponatremia; I50.32 Chronic diastolic (congestive) heart failure; J44.9 Chronic obstructive pulmonary disease, unspecified; F41.9 Anxiety disorder, unspecified; F17.210 Nicotine dependence, cigarettes, uncomplicated; I48.91 Unspecified atrial fibrillation; Z20.822 Contact with and (suspected) exposure to COVID-19; R91.1 Solitary pulmonary nodule; D50.9 Iron deficiency anemia, unspecified; K57.30 Diverticulosis of large intestine without perforation or abscess without bleeding; I11.0 Hypertensive heart disease with heart failure; Z66 Do not resuscitate; Z90.710 Acquired absence of both cervix and uterus; Z88.8 Allergy status to other drugs, medicaments and biological substances; Z79.899 Other long term (current) drug therapy
CPT/HCPCS: 36415; 36416; 36430; 47000; 51701; 71045; 71275; 74177; 76942; 80048; 80053; 81001; 82105; 82274; 82378; 82728; 83540; 83550; 83605; 83690; 83735; 83880; 85025; 85027; 85610; 85730; 86850; 86900; 86901; 87040; 88305; 88307; 88333; 88334; 88341; 88342; 93005; 96365; 96366; 96375; C1788; J0171; J1170; J1642; J2270; J2272; J2405; J2543; J2704; J2916; J3010; J3490; J7050; P9016; Q9967; S0020

== ENCOUNTER 2023-03-11 13:18 | Emergency (ER) | payer SELFPAY ==
[2023-03-11 13:55] LABS: #Monocytes 0.9 thou/uL (0.11-0.59); #Neutrophils 10.4 thou/uL (1.40-6.50); %Basophils 0.2 % (0.0-1.0); %Eosinophils 0.2 % (0.0-10.0); %Lymphocytes 11.6 % (21.0-51.0); %Monocytes 7.1 % (0.0-10.0); %Neutrophils 80.3 % (42.0-75.0); Hematocrit 26.2 % (36.0-47.0); Hemoglobin 8.4 g/dL (12.0-16.0); Mean Corpuscular HGB CONC 32.1 g/dL (32.0-36.0); Mean Corpuscular Hemoglobin 29.3 pg (27.0-31.0); Mean Corpuscular Volume 91.3 fl (78.0-98.0); Mean Platelet Volume 9.2 fL (7.4-10.4); Platelet Count 509 10x3/uL (130-400); RBC Distribution Width 15.5 % (11.5-14.5); Red Blood Cell (RBC) Count 2.87 mill/uL (4.20-5.40); White Blood Cell (WBC) Count 12.9 10x3/uL (4.8-10.8)
[2023-03-11] MEDS ORDERED: Ondansetron PF 4 MG/2 ML Vial ONE (13:56)
[2023-03-11] MEDS ORDERED: HYDROmorphone 0.5 MG/0.5 ML SYRINGE ONE (14:00)
[2023-03-11 14:21] LABS: ALT (SGPT) 22 U/L (8-55); AST (SGOT) 51 U/L (5-34); Alkaline Phosphatase 576 U/L (40-110); Anion Gap 14 mmol/L (10-20); BUN (Urea Nitrogen) 7 mg/dL (9.8-20.1); Bilirubin, Total 0.3 mg/dL (0.2-1.2); Calc. Creatinine Clearance 0 mL/min (70-130); Calcium 8.5 mg/dL (7.8-10.44); Carbon Dioxide 31 mmol/L (23-31); Chloride 93 mmol/L (98-107); Estimated GFR 107; Glucose 122 mg/dL (80-115); Lipase Less than 4 U/L (8-78); Potassium 3.6 mmol/L (3.5-5.1); Sodium 134 mmol/L (136-145)
== END 2023-03-11 17:10 | disposition home or self-care (01) ==
LOC: ERS 13:18
DX: G89.3 Neoplasm related pain (acute) (chronic) (principal); I10 Essential (primary) hypertension; J44.9 Chronic obstructive pulmonary disease, unspecified; F17.210 Nicotine dependence, cigarettes, uncomplicated
CPT/HCPCS: 36415; 74177; 80053; 83690; 85025; 96374; 96375; J1170; J2405; Q9967

== ENCOUNTER 2023-03-26 02:02 | Inpatient (IN) | payer SELFPAY ==
[2023-03-26] MEDS ORDERED: Ondansetron PF 4 MG/2 ML Vial ONE (02:38)
[2023-03-26] MEDS ORDERED: Morphine 4 MG/ML VIAL ONE (02:38)
[2023-03-26 03:22] LABS: #Monocytes 0.9 thou/uL (0.11-0.59); #Neutrophils 6.5 thou/uL (1.40-6.50); %Basophils 0.2 % (0.0-1.0); %Eosinophils 0.2 % (0.0-10.0); %Lymphocytes 16.9 % (21.0-51.0); %Monocytes 10.2 % (0.0-10.0); %Neutrophils 71.9 % (42.0-75.0); Hematocrit 23.2 % (36.0-47.0); Hemoglobin 7.3 g/dL (12.0-16.0); Mean Corpuscular HGB CONC 31.5 g/dL (32.0-36.0); Mean Corpuscular Hemoglobin 29.3 pg (27.0-31.0); Mean Corpuscular Volume 93.2 fl (78.0-98.0); Mean Platelet Volume 9.3 fL (7.4-10.4); Platelet Count 445 10x3/uL (130-400); RBC Distribution Width 16.2 % (11.5-14.5); Red Blood Cell (RBC) Count 2.49 mill/uL (4.20-5.40); White Blood Cell (WBC) Count 9.1 10x3/uL (4.8-10.8)
[2023-03-26 03:46] LABS: ALT (SGPT) 20 U/L (8-55); AST (SGOT) 26 U/L (5-34); Albumin 2.9 g/dL (3.4-4.8); Alkaline Phosphatase 542 U/L (40-110); Anion Gap 21 mmol/L (10-20); BUN (Urea Nitrogen) 6 mg/dL (9.8-20.1); Bilirubin, Total Less than 0.2 mg/dL (0.2-1.2); Calc. Creatinine Clearance 0 mL/min (70-130); Calcium 8.7 mg/dL (7.8-10.44); Carbon Dioxide 23 mmol/L (23-31); Chloride 89 mmol/L (98-107); Estimated GFR 103; Globulin 3.2 g/dL (2.4-3.5); Glucose 91 mg/dL (80-115); Lipase Less than 4 U/L (8-78); Potassium 3.8 mmol/L (3.5-5.1); Protein, Total 6.1 g/dL (5.8-8.1); Sodium 129 mmol/L (136-145)
[2023-03-26 06:49] LABS: Lactic Acid 2.7 mmol/L (0.5-2.2)
[2023-03-26] MEDS ORDERED: Senokot S 8.6-50 MG TAB PO PRN (07:58)
[2023-03-26] MEDS ORDERED: Naloxone HCl 0.4 mg/ml Vial IVP PRN (07:58)
[2023-03-26] MEDS ORDERED: Guaifenesin DM 100-10/5 ML UDCUP PO PRN (07:58)
[2023-03-26] MEDS ORDERED: Ondansetron PF 4 MG/2 ML Vial IVP PRN (07:58)
[2023-03-26] MEDS ORDERED: Calcium Carbonate 500 MG ChewTAB PO PRN (07:58)
[2023-03-26 09:36] VITALS: BMI 21.1
[2023-03-26] MEDS: Sodium Chloride 0.9% 1,000 ML IV SCH ×2 (09:38→21:44)
[2023-03-26] MEDS: oxyCODONE 5 MG TAB PO PRN ×2 (10:20→14:45)
[2023-03-26] MEDS: Gabapentin 300 MG CAP PO SCH ×2 (12:59→21:44)
[2023-03-26] MEDS: traMADol HCl 50 MG TAB PO SCH ×3 (12:59→23:11)
[2023-03-27 05:16] LABS: #Monocytes 1.3 thou/uL (0.11-0.59); #Neutrophils 8.9 thou/uL (1.40-6.50); %Basophils 0.2 % (0.0-1.0); %Eosinophils 0.3 % (0.0-10.0); %Lymphocytes 8.4 % (21.0-51.0); %Monocytes 11.6 % (0.0-10.0); %Neutrophils 78.7 % (42.0-75.0); Hematocrit 27.4 % (36.0-47.0); Hemoglobin 8.9 g/dL (12.0-16.0); Mean Corpuscular HGB CONC 32.5 g/dL (32.0-36.0); Mean Corpuscular Hemoglobin 30.3 pg (27.0-31.0); Mean Corpuscular Volume 93.2 fl (78.0-98.0); Mean Platelet Volume 9.2 fL (7.4-10.4); Platelet Count 480 10x3/uL (130-400); RBC Distribution Width 16.2 % (11.5-14.5); Red Blood Cell (RBC) Count 2.94 mill/uL (4.20-5.40); White Blood Cell (WBC) Count 11.3 10x3/uL (4.8-10.8)
[2023-03-27 05:48] LABS: Anion Gap 13 mmol/L (10-20); BUN (Urea Nitrogen) 4 mg/dL (9.8-20.1); Calc. Creatinine Clearance 110 mL/min (70-130); Calcium 8.6 mg/dL (7.8-10.44); Carbon Dioxide 30 mmol/L (23-31); Chloride 90 mmol/L (98-107); Estimated GFR 107; Glucose 81 mg/dL (80-115); Potassium 4.6 mmol/L (3.5-5.1); Sodium 128 mmol/L (136-145)
[2023-03-27] MEDS: traMADol HCl 50 MG TAB PO SCH ×3 (06:12→17:44)
[2023-03-27] MEDS: Gabapentin 300 MG CAP PO SCH ×3 (06:12→21:17)
[2023-03-27] MEDS: Morphine ER 15 MG TAB PO SCH ×2 (10:03→21:18)
[2023-03-27] MEDS: Sodium Chloride 0.9% 1,000 ML IV SCH (11:33)
[2023-03-27 15:28] LABS: Bacteria/HPF 2+ HPF (None Seen); Bilirubin Negative (Negative); Blood, Urine Negative (Negative); CAUTI Indications for Culture Fever or rigors; Clarity Turbid (Clear); Glucose, Urine (Dipstick) Normal (Negative); Ketone, Urine Negative (Negative); Leukocyte 75 Leu/uL (Negative); Nitrite Negative (Negative); Protein, Urine (Dipstick) 10 mg/dL (Neg-Trace); RBC/HPF 0-3 HPF (0-3); Specific Gravity, Urine 1.013 (1.002-1.036); Urobilinogen Normal mg/dL (Less than 2); Yeast-Budding 2+ HPF (None Seen); pH, Urine 5.5 (5.0-9.0)
[2023-03-27 15:44] LABS: Yeast-Hyphae 1+ HPF (None Seen)
[2023-03-27 15:45] LABS: Urine Culture Reflex No No
[2023-03-27] MEDS ORDERED: Sodium Chloride 0.9% 1,000 ML IV SCH (16:30)
[2023-03-27 23:20] LABS: Lactic Acid 1.4 mmol/L (0.5-2.2)
[2023-03-28] MEDS: Sodium Chloride 0.9% 1,000 ML IV SCH (00:21)
[2023-03-28] MEDS: traMADol HCl 50 MG TAB PO SCH ×5 (00:22→23:13)
[2023-03-28 06:19] LABS: Hematocrit 26.7 % (36.0-47.0); Hemoglobin 8.3 g/dL (12.0-16.0)
[2023-03-28] MEDS: Gabapentin 300 MG CAP PO SCH ×3 (06:24→21:16)
[2023-03-28] MEDS: Morphine ER 15 MG TAB PO SCH ×2 (09:34→21:17)
[2023-03-28] MEDS ORDERED: Metoprolol Tartrate 25 MG TAB PO SCH (15:30)
[2023-03-29] MEDS: Sodium Chloride 0.9% 1,000 ML IV SCH ×2 (02:15→17:35)
[2023-03-29] MEDS: traMADol HCl 50 MG TAB PO SCH ×3 (06:54→17:45)
[2023-03-29] MEDS: Gabapentin 300 MG CAP PO SCH ×2 (06:55→13:38)
[2023-03-29] MEDS: Metoprolol Tartrate 25 MG TAB PO SCH ×2 (08:59→17:48)
[2023-03-29] MEDS: Morphine ER 15 MG TAB PO SCH (08:59)
[2023-03-29] MEDS: oxyCODONE 5 MG TAB PO PRN (13:42)
[2023-03-29 15:48] VITALS: BP 138/68; TEMP 98.6
== END 2023-03-29 18:15 | disposition home or self-care (01) | DRG 375 ==
LOC: ERS 02:05 → ERHOLD 08:24 → SJJU 12:28 → MSONC 03-27 08:23
PROVIDERS: ADMIT Hospitalist; ATTEND Hospitalist
PROC: 30233N1 Transfusion of Nonautologous Red Blood Cells into Peripheral Vein, Percutaneous Approach (ICD-10-PCS; principal; 2023-03-26)
DX: C20 Malignant neoplasm of rectum (principal); C78.7 Secondary malignant neoplasm of liver and intrahepatic bile duct; D62 Acute posthemorrhagic anemia; E87.1 Hypo-osmolality and hyponatremia; G89.3 Neoplasm related pain (acute) (chronic); J44.9 Chronic obstructive pulmonary disease, unspecified; F17.210 Nicotine dependence, cigarettes, uncomplicated; Z71.6 Tobacco abuse counseling; Z79.899 Other long term (current) drug therapy; F41.9 Anxiety disorder, unspecified; Z51.5 Encounter for palliative care; Z66 Do not resuscitate
CPT/HCPCS: 36415; 36430; 71045; 80048; 80053; 81001; 83605; 83690; 85014; 85018; 85025; 86850; 86900; 86901; 87040; 96374; 96375; J2270; J2405; J7050; P9016